=== PATIENT | male | born 1950 | race Caucasian/White ===

== ENCOUNTER → 2018-09-22 11:31 | Outpatient (CLI) | payer MEDICARE, SELFPAY ==
--- NOTE | 2018-09-22 | DI.MRI.S_ITS ---
PROCEDURE: MR HIP LT WO CON INDICATIONS: STRAIN OF MUSCLE,TENDON, AND FASCIA OF LEFT HIP TECHNIQUE: Noncontrast coronal T1 spin echo and STIR through the bony pelvis. Coronal and axial T2 fast spin echo with fat saturation, sagittal T1 spin echo, and oblique axial T2 fast spin echo with fat saturation through the hip. COMPARISON: None. FINDINGS: Image quality: Excellent. Bones and joints: Symmetric mild to moderate bilateral hip joint osteoarthritis is seen with joint space narrowing and subchondral sclerosis. There is marrow edema involving left femoral head and neck. Subtle linear hypointense signal within inferior portion of left femoral neck is seen suspicious for incomplete stress fracture in this area. No cortical disruption. No other area of abnormal marrow signal. This No avascular necrosis of the femoral heads. The visualized lower lumbar spine appears normally aligned. Tendons and ligaments: The gluteus medius and minimus tendons appear intact, without associated muscle atrophy. The nearby proximal iliotibial band also appears intact. The origin of the hamstring tendon is intact at the ischial tuberosity, as well as the associated sacrotuberous ligament. The straight and reflected heads of the rectus femoris muscle origin appear intact, as well as the conjoint tendon. The ligamentum teres appears intact where visualized. Labrum and cartilage: The acetabular labrum appears intact in the absence of intra-articular contrast. Cartilage surface of the femoral head appears of normal thickness. The alpha angle of the femur is within normal limits at less than 55 degrees. Soft tissues: There is edema involving lateral portion of the left abductor muscle adjacent to left femoral neck/proximal shaft suggestive of muscle strain/intrasubstance partial thickness tear. There is also muscle strain and low-grade intrasubstance partial thickness involving distal iliopsoas muscle and pectineus muscle. The proximal sciatic neurovascular bundle appears normal adjacent to the hamstring tendons. No free pelvic fluid. Bladder wall thickness is normal. Genitourinary structures and bowel loops appear normal where visualized. IMPRESSION: 1. Findings concerning for incomplete stress fracture involving inferior portion of left femoral neck. No displaced fracture is seen. No other area of abnormal marrow signal. 2. Edema involving the adjacent lateral portion of the adductor muscles as well as the portion of iliopsoas muscle and pectineus muscles consistent with muscle strain/intrasubstance partial thickness tear. 3. Symmetric appearing bilateral hip joint osteoarthritis. Dictated by: Easton Shine M.D. on 09/22/2018 at 15:41 Approved by: Easton Shine M.D. on 09/22/2018 at 15:49
== END ==
PROVIDERS: PCP Internal Medicine; Visit Provider Orthopaedic Surgery
DX: S76.012A Strain of muscle, fascia and tendon of left hip, initial encounter (principal); M16.0 Bilateral primary osteoarthritis of hip
CPT/HCPCS: 73721

== ENCOUNTER 2020-10-25 10:07 | Emergency (ER) | payer MEDICARE, SELFPAY ==
[2020-10-25 10:18] VITALS: BP 109/59; PULSE 61; RESP 16; TEMP 36.1; O2SAT 97; BMI 24.3
--- NOTE | 2020-10-25 10:23 | DI.RAD.S_ITS ---
PROCEDURE: XR CHEST 1V INDICATIONS: chest pain TECHNIQUE: 2 frontal views of the chest were performed. COMPARISON: [facility] Outside Film, CT, CT ABDOMEN PELVIS WITHOUT CONTRAST, 09/04/2016, 8:50. FINDINGS: Exam is slightly limited given patient rotation. Surgical changes and devices: Likely surgical clips are noted at the gastroesophageal junction. Lungs and pleura: Lungs are clear. No pleural effusions or pneumothorax. Mediastinum: Mediastinal contours appear normal. Heart size is normal. Bones and chest wall: No suspicious bony lesions. Overlying soft tissues appear unremarkable. IMPRESSION: No evidence of an acute cardiopulmonary abnormality. Dictated by: Herb Hernandez D.O. on 10/25/2020 at 9:39 Approved by: Herb Hernandez D.O. on 10/25/2020 at 9:43
[2020-10-25 10:54] VITALS: PULSE 63; O2SAT 100
[2020-10-25 11:00] VITALS: PULSE 64; O2SAT 100
[2020-10-25 11:11] LABS: INR 1.1 (0.9-1.3); Prothrombin Time 11.9 SECONDS (10.1-12.7)
--- NOTE | 2020-10-25 11:13 | DI.CT.S_ITS ---
PROCEDURE: CT HEAD/BRAIN WO CON INDICATIONS: dizzyness, h/o lyphoma TECHNIQUE: Noncontrast 4.5 mm thick angled axial sections acquired from the foramen magnum to the vertex, with coronal and sagittal reformats. For radiation dose reduction, the following was used: automated exposure control, adjustment of mA and/or kV according to patient size. COMPARISON: None. FINDINGS: Image quality: Excellent. CSF spaces: Basal cisterns are patent. No extra-axial fluid collections. Ventricles are normal in size and shape. Brain: No midline shift. No intracranial masses or hemorrhage. A few scattered foci of white matter hypoattenuation not greater than expected for patient's age likely representing mild microvascular ischemic changes. Husain-white matter interface is normal. Small amount of calcifications are noted within the proximal intracranial carotid arteries. Patient is status post bilateral lens replacement. Skull and face: Calvarium and visualized facial bones are intact benign appearing regions of sclerosis within the left frontal bone just superior to the left orbit measuring up to 8 millimeters in greatest diameter. Sinuses: Visualized sinuses and mastoids are clear. Mild leftward septal spurring. IMPRESSION: No acute intracranial abnormality. Dictated by: Herb Hernandez D.O. on 10/25/2020 at 10:35 Approved by: Herb Hernandez D.O. on 10/25/2020 at 10:42
[2020-10-25 11:14] LABS: PTT Partial Thromboplastin Tim 32 SECONDS (26.4-36.2)
[2020-10-25 11:15] LABS: Alanine Aminotransferase 17 IU/L (<50); Albumin 4.4 g/dL (3.5-5.0); Albumin Globulin Ratio 1.4 (1.0-2.8); Alkaline Phosphatase 66 U/L (38-126); Aspartate Aminotransferase 19 IU/L (17-59); BUN Creatinine Ratio 30.1 (6-22); Bilirubin Total 0.8 mg/dL (0.2-1.3); Blood Urea Nitrogen 22 mg/dL (9-20); Calcium 9.8 mg/dL (8.4-10.2); Carbon Dioxide 34 mmol/L (22-32); Chloride 100 mmol/L (98-107); Creatine Kinase 33 U/L (55-170); Estimated Glomerular Filt Rate > 60.0 mL/min (>60); Globulin 3.2 g/dL (1.7-4.1); Glucose 97 mg/dL (80-110); HEMOLYSIS < 15 (0-50); Lipase 69 U/L (23-300); Potassium 3.8 mmol/L (3.4-5.1); Sodium 140 mmol/L (137-145); Total Protein 7.6 g/dL (6.3-8.2)
[2020-10-25 11:22] LABS: Add Manual Diff / Slide Review NO; Basophils Absolute Auto 0 /uL (0-100); Basophils Percent Auto 0.4 % (0-2); Eosinophils Absolute Auto 0 /uL (0-450); Eosinophils Percent Auto 0.2 % (2-4); Hematocrit 36.2 % (41-53); Hemoglobin 13.1 g/dL (13.5-17.5); Lymphocytes Absolute Auto 900 /uL (1100-4500); Lymphocytes Percent Auto 19.1 % (25-40); Mean Corpuscular HGB Conc 36.1 % (30-36); Mean Corpuscular Hemoglobin 33.2 PG (26-34); Mean Corpuscular Volume 91.9 fL (80-100); Monocytes Absolute Auto 1100 /uL (0-900); Monocytes Percent Auto 23.1 % (3-14); Neutrophils Absolute Auto 2700 /uL (1500-7000); Neutrophils Percent Auto 57.2 % (50-75); Platelet Count 127 X10^3/uL (150-400); Red Blood Cell Count 3.94 X10^6/uL (4.5-5.9); Red Cell Distribution Width 12.8 % (11.6-14.8); White Blood Cell Count 4.8 X10^3/uL (4.5-11.0)
[2020-10-25 11:29] LABS: Troponin I < 0.012 ng/mL (0.01-0.034)
[2020-10-25 12:25] VITALS: BP 108/63; PULSE 70; RESP 16; O2SAT 100
--- NOTE | 2020-10-25 12:27 | ED.DIZZY ---
HPI - Dizziness General Chief Complaint: Altered Mental Status Stated Complaint: dizziness, low blood sugar Time Seen by Provider: 10/25/20 12:26 Source: patient and EMS Mode of arrival: EMS Limitations: no limitations History of Present Illness HPI Narrative: This is a 69-year-old male who states that he was walking his dog this morning when he started to feel little off balance and like he might pass out he felt diaphoretic, he felt like his muscles were quivering and his teeth was going to chatter and his legs may give out. Patient states that he did not have any chest pain or pressure no shortness of breath. He did not have any syncope. He denies any nausea or vomiting. He has not had any changes with his bowel movements or urination recently. No black or bloody stools. He denies any swelling his extremities. He states that he ate a protein and then EMS arrived and checked his glucose about 20 minutes later and he was 71 and he was continuing to feel better over time and was given some additional dextrose and continued to feel better and feels back to normal. Patient does have a history of lymphoma he is in a be 12 K inhibitor, he takes levothyroxine, omeprazole and regularly. He has a history of gastric sleeve. Patient denies any other surgeries. He has not had similar episodes or hypoglycemia in the past but suspects that he was eating some hard candies this morning then 1 for his walk-in suspects his sugar got low and he started to have symptoms. Related Data Allergies Allergy/AdvReac Type Severity Reaction Status Date / Time No Known Drug Allergies Allergy Verified 10/25/20 10:14 Review of Systems Review of Systems ROS Unobtainable: All systems reviewed & are unremarkable except as noted in HPI and below Patient History Social History Smoking Status: Never smoker Smoking Status: Never smoker alcohol intake frequency: holidays/special occasions only Substance Use Type: does not use Exam Narrative Exam Narrative: GENERAL: Alert and oriented x three, thin, well-appearing male in mild distress. HEENT: Head normocephalic, atraumatic, EOMI, pupils reactive, face symmetric, moist mucous membranes NECK: Supple, full range of motion CARDIOVASCULAR: Regular rate and rhythm without murmurs, rubs or gallops. RESPIRATORY: Breath sounds equal bilaterally, no wheezes rales or rhonchi. ABDOMEN: Soft, nontender. Normoactive bowel sounds all 4 quadrants. No guarding or rebound, rigidity, no mass : No CVA tenderness EXTREMITIES: Normal range of motion, no clubbing or edema. Neurovascularly intact NEUROLOGICAL: Cranial nerves II through XII grossly intact. Moving all extremities. SKIN: Warm, dry, no petechiae, no rashes or lesions. Initial Vital Signs Initial Vital Signs: Vital Signs Temperature 97 F L 10/25/20 10:18 Pulse Rate 61 10/25/20 10:18 Respiratory Rate 16 10/25/20 10:18 Blood Pressure 109/59 L 10/25/20 10:18 Pulse Oximetry 97 10/25/20 10:18 Scores GCS [place] coma scale eye opening: Spontaneous Arturo coma scale verbal response: Orientated [place] coma scale motor response: Obey commands [place] coma scale total score: 15 Course Orders Ordered: ED Orders 10/25/20 10:55 Complete Blood Count AUTO DIFF Stat Comprehensive Metabolic Panel Stat Lipase Stat Partial Thromboplastin Time Stat Prothrombin Time INR Stat Troponin & CK Cardiac Panel Stat 10/25/20 11:13 CT head/brain wo con Stat Vital Signs Vital signs: Vital Signs - 8 hr 10/25/20 12:25 Pulse Rate 70 Respiratory Rate 16 Blood Pressure 108/63 Pulse Oximetry 100 MDM - Dizziness Lab Data Attestation: I reviewed the patient's lab results. Result diagrams: 10/25/20 10:55 10/25/20 10:55 Labs: Lab Results 10/25/20 10/25/20 10/25/20 Range/Units 10:55 10:55 10:55 WBC 4.8 (4.5-11.0) X10^3/uL RBC 3.94 L (4.5-5.9) X10^6/uL Hgb 13.1 L (13.5-17.5) g/dL Hct 36.2 L (41-53) % MCV 91.9 (80-100) fL MCH 33.2 (26-34) PG MCHC 36.1 H (30-36) % RDW 12.8 (11.6-14.8) % Plt Count 127 L (150-400) X10^3/uL Neut % (Auto) 57.2 (50-75) % Lymph % (Auto) 19.1 L (25-40) % [place] % (Auto) 23.1 H (3-14) % Eos % (Auto) 0.2 L (2-4) % Baso % (Auto) 0.4 (0-2) % Neut # (Auto) 2700 (1457-5985) /uL Lymph # (Auto) 900 L (3979-5419) /uL [place] # (Auto) 1100 H (0-900) /uL Eos # (Auto) 0 (0-450) /uL Baso # (Auto) 0 (0-100) /uL PT 11.9 (10.1-12.7) SECONDS INR 1.1 (0.9-1.3) APTT 32 (26.4-36.2) SECONDS Sodium 140 (137-145) mmol/L Potassium 3.8 (3.4-5.1) mmol/L Chloride 100 (98-107) mmol/L Carbon Dioxide 34 H (22-32) mmol/L BUN 22 H (9-20) mg/dL Creatinine 0.73 (0.66-1.25) mg/dL Estimated GFR > 60.0 (>60) mL/min BUN/Creatinine Ratio 30.1 H (6-22) Glucose 97 (80-110) mg/dL Calcium 9.8 (8.4-10.2) mg/dL Total Bilirubin 0.8 (0.2-1.3) mg/dL AST 19 (17-59) IU/L ALT 17 (<50) IU/L Alkaline Phosphatase 66 (38-126) U/L Total Creatine Kinase 33 L (55-170) U/L CK-MB (CK-2) TNP CK-MB (CK-2) Rel Index TNP Troponin I < 0.012 (0.01-0.034) ng/mL Total Protein 7.6 (6.3-8.2) g/dL Albumin 4.4 (3.5-5.0) g/dL Globulin 3.2 (1.7-4.1) g/dL Albumin/Globulin Ratio 1.4 (1.0-2.8) Lipase 69 (23-300) U/L Point of Care Testing Glucose POC 113 Urine Dip Bedside Urine Glucose Negative Bedside Urine Bilirubin - Negative Bedside Urine Ketone - Negative Urine Specific [place] 1.030 Bedside Urine Occult Blood - Negative Bedside Urine pH 6 Bedside Urine Protein - Negative Bedside Urine Urobilinogen - Negative Bedside Urine Nitrite - Negative Bedside Urine Leukocytes - Negative Esterase Imaging Data CT scan - head: Radiologist's Impression: Dm Vanegas 69 M [address] [id number] Scan ReportSigned Patient: Dm VanegasMR#: [id number]: 1950cct:[id number]/Sex: 69 / MDate of Service: 10/25/20Loc: EDAccession Number: [id number] Procedure: CT head/brain wo con Ordering Provider: Deedee Jiang D.O. PROCEDURE: CT HEAD/BRAIN WO CON INDICATIONS: dizzyness, h/o lyphoma TECHNIQUE: Noncontrast 4.5 mm thick angled axial sections acquired from the foramen magnum to the vertex, with coronal and sagittal reformats. For radiation dose reduction, the following was used: automated exposure control, adjustment of mA and/or kV according to patient size. COMPARISON: None. FINDINGS: Image quality: Excellent. CSF spaces: Basal cisterns are patent. No extra-axial fluid collections. Ventricles are normal in size and shape. Brain: No midline shift. No intracranial masses or hemorrhage. A few scattered foci of white matter hypoattenuation not greater than expected for patient's age likely representing mild microvascular ischemic changes. Husain-white matter interface is normal. Small amount of calcifications are noted within the proximal intracranial carotid arteries. Patient is status post bilateral lens replacement. Skull and face: Calvarium and visualized facial bones are intact benign appearing regions of sclerosis within the left frontal bone just superior to the left orbit measuring up to 8 millimeters in greatest diameter. Sinuses: Visualized sinuses and mastoids are clear. Mild leftward septal spurring. IMPRESSION: No acute intracranial abnormality. Dictated by: Herb Hernandez D.O. on 10/25/2020 at 10:35 Approved by: Herb Hernandez D.O. on 10/25/2020 at 10:42 Chest x-ray: Radiologist's Impression: [address] [id number] ReportSigned Patient: Dm VanegasMR#: [id number]: 1950cct:[id number]/Sex: 69 / MDate of Service: 10/25/20Loc: EDAccession Number: [id number] Procedure: XR chest 1V Ordering Provider: Deedee Jiang D.O. PROCEDURE: XR CHEST 1V INDICATIONS: chest pain TECHNIQUE: 2 frontal views of the chest were performed. COMPARISON: [facility] Outside Film, CT, CT ABDOMEN PELVIS WITHOUT CONTRAST, 09/04/2016, 8:50. FINDINGS: Exam is slightly limited given patient rotation. Surgical changes and devices: Likely surgical clips are noted at the gastroesophageal junction. Lungs and pleura: Lungs are clear. No pleural effusions or pneumothorax. Mediastinum: Mediastinal contours appear normal. Heart size is normal. Bones and chest wall: No suspicious bony lesions. Overlying soft tissues appear unremarkable. IMPRESSION: No evidence of an acute cardiopulmonary abnormality. Dictated by: Herb Hernandez D.O. on 10/25/2020 at 9:39 Approved by: Herb Hernandez D.O. on 10/25/2020 at 9:43 ECG Data Attestation: I personally reviewed and interpreted this ECG as follows: Interpretation: Sinus rhythm rate of 61 CT 176 QRS of 98 QTC of 438. No acute ST changes appreciated. MDM Narrative Medical decision making narrative: This is a 69-year-old male comes with complaint of dizziness and possible hypoglycemic episode. Patient was 71 on his glucose with EMS but he had already had a protein bar about 20 minutes prior and his symptoms were improving. Patient does have a history of gastric sleeve but he has not had hypoglycemic episodes in the past. Patient has not had any additional symptoms here. He does not have any acute findings on his imaging, EKG or lab work at that are suspicious for other causes at this time. Discharge Plan Departure Patient Disposition: Home Clinical Impression: Dizziness Instructions: DI for Hypoglycemia Activity Restrictions/Additional Instructions: Follow-up with your physician in the next week for recheck particularly if you have any additional symptoms. Please return to the ER for fevers, altered mental status, passing out or recurrent lightheadedness, new chest pain, shortness of breath, recurrent diaphoresis, persistent vomiting, new weakness numbness or tingling, recurrent symptoms that are similar other new or concerning symptoms. Referrals: Alfred Martínez MD [Primary Care Provider] -
== END 2020-10-25 13:22 | disposition home or self-care (01) ==
PROVIDERS: Emergency Provider Emergency Medicine; PCP Internal Medicine
DX: R42 Dizziness and giddiness (principal); R07.9 Chest pain, unspecified
CPT/HCPCS: 36415; 70450; 71045; 80053; 81003; 82550; 82962; 83690; 84484; 85025; 85610; 85730; 93005; 99284

== ENCOUNTER → 2023-10-29 09:55 | Outpatient (CLI) | payer MEDICARE, SELFPAY ==
--- NOTE | 2023-10-29 09:57 | DI.MRI.S_ITS ---
PROCEDURE: MR HEAD/BRAIN WO/W CON INDICATIONS: MENINGIOMA TECHNIQUE: Noncontrast axial T1 spin echo, axial T2 fast spin echo, sagittal and axial FLAIR, coronal T2 fast spin echo, axial gradient echo, axial diffusion and ADC through the brain. After the administration of contrast, axial and coronal and sagittal 3D VIBE or T1 spin echo with fat saturation through the brain. COMPARISON: None. FINDINGS: Image quality: Excellent. CSF Spaces: Basal cisterns are patent. No extra-axial fluid collections. Ventricles are normal in size and shape. Brain: No intracranial hemorrhage. There is a small 9 mm left parafalcine meningioma noted. No significant mass effect cerebral edema. Husain/white matter interface is normal. Brainstem appears normal. Diffusion-weighted sequence is unremarkable without evidence of acute infarct. Normal intravascular flow voids are present. Skull and face: Calvarial marrow is normal in signal. Orbits appear normal. Sinuses: Sinuses and mastoids appear clear. IMPRESSION: Small 9 left parafalcine meningioma. Mild atrophy and matter chronic ischemic change. Approved by: Arnold Beavers M.D. on 10/31/2023 at 12:45
== END ==
PROVIDERS: PCP Internal Medicine; Referring Provider Physician Assistant; Visit Provider Physician Assistant
DX: D32.9 Benign neoplasm of meninges, unspecified (principal)
CPT/HCPCS: 70553; A9579